=== PATIENT | female | born 1995 | race Caucasian/White ===

== ENCOUNTER 2022-11-02 11:46 | Emergency (ER) | payer OTHER ==
[2022-11-02 11:57] VITALS: BP 122/83; PULSE 88; RESP 17; TEMP 99.1; BMI 39.1
[2022-11-02 13:43] LABS: POTASSIUM 4.1 mmol/L (3.5-5.1)
[2022-11-02 13:46] LABS: ALBUMIN 3.9 g/dl (3.4-5.0); BLOOD UREA NITROGEN 18.4 mg/dL (7-18)
[2022-11-02 13:49] LABS: CREATININE 0.9 mg/dL (0.55-1.3)
[2022-11-02 13:51] LABS: BILIRUBIN,TOTAL 0.5 mg/dL (0.2-1); TOT PROT 6.9 g/dl (6.4-8.2)
[2022-11-02 13:54] LABS: BASO % 2.8 % (0-2.0); EOS % 1.5 % (0-4.5); HEMATOCRIT 42.8 % (32.4-45.2); HEMOGLOBIN 14.9 GM/dL (10.7-15.3); LYMPH % 30.3 % (8-40); MCH 29.1 pg (25.7-33.7); MCHC 34.8 g/dl (32.0-36.0); MEAN CELL VOLUME 83.7 fl (80-96); MEAN PLT VOLUME 8.8 fl (7.5-11.1); MONO % 7.9 % (3.8-10.2); NEUT % 57.5 % (42.8-82.8); PLATELET COUNT 277 10^3/uL (134-434); RBC 5.11 M/mm3 (3.60-5.2); WHITE BLOOD COUNT 8.6 K/mm3 (4.0-10.0)
[2022-11-02] MEDS ORDERED: ACETAMINOPHEN 500 MG TABLET (FP) PO ONE (15:03)
[2022-11-02] MEDS ORDERED: ACETAMINOPHEN 500 MG TABLET (FP) ONE (15:04)
== END 2022-11-02 15:06 | disposition home or self-care (01) ==
LOC: JERFT 11:46
DX: M54.6 Pain in thoracic spine (principal); W20.8XXA Other cause of strike by thrown, projected or falling object, initial encounter
CPT/HCPCS: 36415; 71275-TC; 80053; 84703; 85025; 99284-25; Q9967